=== PATIENT | female | born 1980 | race Caucasian/White ===

== ENCOUNTER 2022-02-13 09:50 | Outpatient (CLI) | payer BC | END 2022-02-13 09:51 | disposition home or self-care (01) | LOC: CSHMAMMO 09:50 | PROVIDERS: ATTEND Student in an Organized Health Care Education/Training Program | DX: Z12.31 Encounter for screening mammogram for malignant neoplasm of breast (principal); Z98.82 Breast implant status | CPT/HCPCS: 77063; 77067 ==